=== PATIENT | female | born 1960 | race Caucasian/White ===

== ENCOUNTER 2018-03-21 21:55 | Emergency (ER) | payer MEDICARE, MEDICAID ==
[~2018-03-21] VITALS: Ht 157.5 cm; Wt 77.0 kg
[2018-03-21] MEDS ORDERED: MORPHINE SULFATE 4 MG/ML CPJ (NOT FOR IM USE) IV STA (22:46)
[2018-03-21] MEDS ORDERED: ONDANSETRON HCL 4MG/2ML INJ IV STA (22:46)
[2018-03-21] MEDS ORDERED: SODIUM CHLORIDE 0.9% 1,000 ML IV ONE (22:46)
[2018-03-21 23:12] LABS: BASOPHILS % 0.4 % (0.0-2.0); EOSINOPHILS % 0.4 % (0.0-5.0); HEMATOCRIT. 37.2 % (36.0-48.0); LYMPHOCYTES % 5.9 % (20.0-50.0); MEAN CORPUSCULAR HEMOGLOBIN 27.9 pg (28.0-32.0); MEAN CORPUSCULAR VOLUME 86.4 fL (81.0-99.0); MEAN PLATELET VOLUME 8.2 fl (7.4-10.4); MONOCYTES % 5.7 % (2.0-8.0); NEUTROPHILS % 87.6 % (40.0-76.0); PLATELET 268 x1000/uL (130-400); RED BLOOD CELL COUNT 4.31 mill/uL (4.2-5.4); RED CELL DISTRIBUTION WIDTH 18.9 % (11.6-14.6)
[2018-03-21 23:19] LABS: CHLORIDE 110 mEq/L (98-107)
[2018-03-22] MEDS ORDERED: ONDA4TAB5 PO (01:34)
[2018-03-22] MEDS ORDERED: PROG1 PO (01:34)
[2018-03-22] MEDS ORDERED: VALC450 PO (01:34)
[2018-03-22] MEDS ORDERED: CLON0.2T PO (01:34)
[2018-03-22] MEDS ORDERED: ACET325C5 PO (01:34)
[2018-03-22] MEDS ORDERED: ASPI-1159 PO (01:34)
[2018-03-22] MEDS ORDERED: COR12 PO (01:34)
[2018-03-22] MEDS ORDERED: BISA-81 PO (01:34)
[2018-03-22] MEDS ORDERED: AMLO10TA4 PO (01:34)
[2018-03-22] MEDS ORDERED: PRED10TA23 PO (01:34)
[2018-03-22] MEDS ORDERED: TACR0.5C PO (01:34)
[2018-03-22] MEDS ORDERED: DOCU-150 PO (01:34)
[2018-03-22] MEDS ORDERED: FOLI-43 PO (01:34)
[2018-03-22] MEDS ORDERED: INSU100I24 SQ (01:34)
[2018-03-22] MEDS ORDERED: INSNOV SUBCUT (01:34)
[2018-03-22] MEDS ORDERED: HYDR-4134 PO (01:34)
[2018-03-22] MEDS ORDERED: MYCO180T PO (01:34)
[2018-03-22] MEDS ORDERED: MAGN400C PO (01:34)
[2018-03-22] MEDS ORDERED: PANT40SU PO (01:34)
[2018-03-22] MEDS ORDERED: MULT-1116 PO (01:34)
[2018-03-22] MEDS ORDERED: SODI15OR PO (01:34)
[2018-03-22 05:16] VITALS: BP 185/73
== END 2018-03-22 05:29 | disposition short-term general hospital (02) ==
LOC: ER 21:55
DX: S72.142A Displaced intertrochanteric fracture of left femur, initial encounter for closed fracture (principal); E11.9 Type 2 diabetes mellitus without complications; I10 Essential (primary) hypertension; N28.9 Disorder of kidney and ureter, unspecified; Z94.0 Kidney transplant status; Z98.890 Other specified postprocedural states; Z86.73 Personal history of transient ischemic attack (TIA), and cerebral infarction without residual deficits; Z88.9 Allergy status to unspecified drugs, medicaments and biological substances; Z79.899 Other long term (current) drug therapy; W18.39XA Other fall on same level, initial encounter; Y93.89 Activity, other specified; Y92.89 Other specified places as the place of occurrence of the external cause; Y99.8 Other external cause status
CPT/HCPCS: 36415; 73502; 73552; 80053; 82962; 85025; 99285; J2270; J2405; J7030